=== PATIENT | female | born 1955 | race Caucasian/White ===

== ENCOUNTER → 2019-04-08 07:49 | Outpatient (CLI) | payer SELFPAY ==
--- NOTE | 2019-04-08 07:53 | CT_ITS ---
STUDY: CARDIAC CALCIUM SCORING - CT CHEST REASON FOR EXAM: Female, 63 years old. LIMITED CHEST OVEREAD ONLY!!!!!!CA SCORING RADIATION DOSAGE (If Supplied By Facility): CTDIvol = ( 12.19 ) mGy, DLP = ( 219.42 ) mGycm TECHNIQUE: Axial non-enhanced images were acquired through the heart for the sole purpose of measuring coronary artery calcium. Individualized dose optimization techniques were used for this CT. COMPARISON: None. FINDINGS: Visualized surrounding anatomy: Normal. Left Main Coronary Artery: 0 Left Anterior Descending Artery: 0 Left Circumflex Artery: 0 Right Coronary Artery: 0 Other: Mild chronic interstitial changes Total Calcium Score: 0 CT/Limited Chest CT w/CCTA IMPRESSION: A Calcium Score of 0 places the patient in the approximate percentile, based on the [employer] data calculator. Please go to: [email or web address] , for a description of the calculator. Electronically Signed: William Head MD at 20:36 EST , Service support ,
[2019-04-08 08:06] VITALS: BP 122/85; PULSE 69; RESP 16; O2SAT 98; BMI 26.1
--- NOTE | 2019-04-08 17:36 | CA.SCORE ---
Calcium Scoring Date of Study:: 04/08/19 Coronary Calcium Scoring: High-resolution Computed Tomographic imaging of the chest was performed on 04/08/2019 with particular attention paid to the coronary arteries. Images from the examination were analyzed for the presence and extent of coronary artery calcification , using coronary calcium quantification software. The patient tolerated the procedure well and there were no complications. The results of the coronary calcification analysis are provided below. - Findings Left Main (LM): 0 Left Anterior Descending (LAD): 0 Left Circumflex (LCX): 0 Right Coronary Artery (RCA): 0 Total Agatston Score: 0 Percentile Ranking: Percentile rankin% of patients of the same gender/similar age had the same/lower scores Calcium Scoring Interpretation: 0 No identifiable atherosclerotic plaque. Very low cardiovascular disease risk. <5% chance of presence coronary artery disease A Negative Examination 1-10 Minimal Plaque burden. Significant coronary artery disease very unlikely. 11-100 Mild plaque burden. Likely mild or minimal coronary atherosclerosis. 101-400 Moderate plaque burden Moderate non-obstructive coronary artery disease highly likely. Over 400 Extensive plaque burden. High likelihood of at least one significant coronary stenosis (>50% diameter) Calcium Score: 0 Negative Examination - Continue cardiovascular risk factor evaluation and care as deemed appropriate.
== END ==
PROVIDERS: PCP Internal Medicine; Referring Provider Internal Medicine; Visit Provider Internal Medicine
DX: Z13.9 Encounter for screening, unspecified (principal)
CPT/HCPCS: 75571; 76380

== ENCOUNTER → 2020-05-29 15:43 | Outpatient (CLI) | payer BC, SELFPAY ==
[2019-04-08 08:06] VITALS: BMI 26.1
[2020-05-29 15:54] LABS: Absolute Neutrophil Count 1.9 X10^3/uL (2.0-7.7); Basophil# 0.04 X10^3/uL; Basophil% 0.7 % (0-1); Eosinophil# 0.07 X10^3/uL; Eosinophils% 1.3 % (0-5); Hematocrit 39.8 % (37-47); Hemoglobin 13.2 g/dL (12.0-15.0); Lymphocyte % 54.9 % (19-41); Mean Corp Hgb Conc 33.2 g/dL (32-36); Mean Corpuscular Hgb 30.6 pg (27.0-32.0); Mean Corpuscular Volume 92.1 fL (81-99); Mean Platelet Vol. 11.4 fl (6.2-12.0); Monocyte# 0.45 X10^3/uL; Monocyte% 8.2 % (0-10); NRBC Flagged by Analyzer 0 % (0-5); Neutrophil # 1.89 X10^3/uL (2.7-7.7); Neutrophil % 34.7 % (47-70); Platelet Count 279 K/mm3 (150-450); RBC Distribution Width CV 12.5 % (11.6-14.6); RBC Distribution Width SD 42.6 fl (35.1-43.9); Red Blood Count 4.32 M/mm3 (4.2-5.4); White Blood Count 5.5 K/mm3 (4.4-11.0)
[2020-05-29 16:11] LABS: ALB/GLOB Ratio 1.4 RATIO (0.9-2.4); AST(SGOT) 14 U/L (15-37); Alanine Aminotransfer ALT/SGPT 29 U/L (13-56); Alkaline Phosphatase 67 U/L (45-117); Amylase 46 U/L (25-115); Anion Gap 5 (5-15); BUN 8 mg/dL (7-18); BUN/Creat Ratio 12.6 RATIO (10-20); Calcium,Total 9.3 mg/dL (8.5-10.1); Chloride 105 mmol/L (98-107); Creatinine, Serum 0.64 mg/dL (0.55-1.02); EST Glomerular Filtration Rate 100 mL/min (>60); Est Glom Filt Rate - Afr Amer 121 mL/min (>60); Globulin 2.9 g/dL (2.2-4.2); Glucose 97 mg/dL (74-106); Lipase 87 U/L (73-393); Potassium 3.6 mmol/L (3.5-5.1); Protein, Total 6.9 g/dL (6.4-8.2); Sodium Level 139 mmol/L (136-145)
== END ==
PROVIDERS: PCP Internal Medicine; Referring Provider Internal Medicine; Visit Provider Internal Medicine
DX: R10.13 Epigastric pain (principal)
CPT/HCPCS: 80053; 82150; 83690; 85025